=== PATIENT | male | born 2000 | race African-American/Black ===

== ENCOUNTER 2020-03-12 14:37 | Emergency (ER) | payer OTHER ==
[~2020-03-12] VITALS: Ht 182.9 cm; Wt 107.0 kg
[2020-03-12 14:39] VITALS: BP 146/83
== END 2020-03-12 15:38 | disposition home or self-care (01) ==
LOC: ER 14:37
DX: S91.332A Puncture wound without foreign body, left foot, initial encounter (principal); W22.8XXA Striking against or struck by other objects, initial encounter; Y93.89 Activity, other specified; Y92.512 Supermarket, store or market as the place of occurrence of the external cause; Y99.8 Other external cause status
CPT/HCPCS: 99282